=== PATIENT | female | born 1970 | race Hispanic/Latino ===

== ENCOUNTER 2019-03-31 18:50 | Emergency (ER) | payer BC ==
[~2019-03-31] VITALS: Ht 167.6 cm; Wt 108.4 kg
[2019-03-31] MEDS ORDERED: CEFTRIAXONE SOD 1 GM VIAL ONE (19:34)
[2019-03-31] MEDS ORDERED: SODIUM CHLORIDE 0.9% 1000ML 1,000 ML ONE (19:34)
[2019-03-31] MEDS ORDERED: CEFTRIAXONE SOD 1 GM/NS 50 ML 50 ML IV ONE (19:35)
[2019-03-31] MEDS ORDERED: CEFTRIAXONE SOD 2 GM/NS 100 ML 100 ML IV ONE (20:15)
[2019-03-31] MEDS ORDERED: SODIUM CHLORIDE 0.9% 1000ML 1,000 ML IV ONE (20:15)
[2019-03-31] MEDS ORDERED: ACETAMINOPHEN 325 MG TAB ONE (20:44)
[2019-03-31] MEDS ORDERED: ACETAMINOPHEN 325 MG TAB PO ONE (20:45)
== END 2019-03-31 21:06 | disposition home or self-care (01) ==
LOC: FSED 18:50
DX: R30.0 Dysuria (principal); R11.0 Nausea; N30.91 Cystitis, unspecified with hematuria
CPT/HCPCS: 81003; 87400; 99283; J0696 ×2; J7030

== ENCOUNTER 2023-12-18 13:31 | Emergency (ER) | payer BC ==
[~2023-12-18] VITALS: Ht 167.6 cm; Wt 96.7 kg
[2023-12-18] MEDS ORDERED: HYDROCODON-ACE1 EA11 PO (14:11)
[2023-12-18 14:28] VITALS: PULSE 83; RESP 16; TEMP 98.1; O2SAT 98
== END 2023-12-18 14:28 | disposition home or self-care (01) ==
LOC: FSED 13:52
DX: B02.29 Other postherpetic nervous system involvement (principal); I10 Essential (primary) hypertension; E11.9 Type 2 diabetes mellitus without complications; E78.5 Hyperlipidemia, unspecified
CPT/HCPCS: 99283